=== PATIENT | female | born 1970 | race Caucasian/White ===

== ENCOUNTER 2019-01-07 15:07 | Emergency (ER) | payer OTHER, SELFPAY ==
[2019-01-07] MEDS ORDERED: Ketorolac Tromethamine 30 MG/ML VIAL ONE (15:34)
[2019-01-07 17:14] LABS: Bilirubin Negative (Negative); Blood, Urine Large (Negative); Glucose, Urine (Dipstick) Negative (Negative); Leukocyte Negative (Negative); Nitrite Negative (Negative); Protein, Urine (Dipstick) 30 mg/dL (Neg-Trace); Urobilinogen 0.2 mg/dL (Less than 2)
[2019-01-07 17:15] LABS: Clarity Hazy (Clear); Pregnancy Test - Urine (BHCG) Negative (Negative); Pregu Control Background? CLEAR/WHITE (CLR/WHITE); Pregu Control Bar Appear? YES (CONTROL BAR); Specific Gravity 1.015 (1.002-1.036)
[2019-01-07 17:17] LABS: Bacteria/HPF 1+ HPF (None Seen); RBC/HPF 21-50 HPF (0-3); WBC/HPF None Seen HPF (0-3)
--- NOTE | 2019-01-07 17:54 | CT ---
EXAM: Abdomen and pelvic CT scan without contrast: HISTORY: Left flank pain COMPARISON: 01/15/2015 FINDINGS: The visualized lung bases are clear. Liver: Unremarkable. Gallbladder: Unremarkable. Pancreas: Unremarkable Spleen: Unremarkable. Adrenal glands: Unremarkable. Kidneys: No renal calculus or acute obstruction. No ureterolithiasis. Bowel: Mild colonic diverticulosis. Urinary Bladder: The urinary bladder is unremarkable. Free Air: No free air. Ascites: No ascites. Osseous structures: No acute osseous abnormalities. IMPRESSION: No urolithiasis or obstructive uropathy. Evaluation is otherwise limited by noncontrast technique.
== END 2019-01-07 18:10 | disposition home or self-care (01) ==
LOC: SCSER 15:07
DX: M54.5 Low back pain (principal); F41.9 Anxiety disorder, unspecified; F17.210 Nicotine dependence, cigarettes, uncomplicated
CPT/HCPCS: 74176; 81003; 81015; 81025; 96361; 96374; 96375; J1885; J2270

== ENCOUNTER 2021-02-26 12:35 | Outpatient (CLI) | payer OTHER | END 2021-02-26 12:36 | disposition home or self-care (01) | LOC: BICRAD 12:35 | PROVIDERS: ATTEND Specialist | DX: R05.9 Cough, unspecified (principal); J98.4 Other disorders of lung | CPT/HCPCS: 71046 ==